=== PATIENT | female | born 1940 | race Two or more races ===

== ENCOUNTER 2017-02-15 11:01 | Outpatient (CLI) | payer MEDICARE, MEDICAID | END 2017-02-15 23:59 | disposition home or self-care (01) | LOC: WOU 11:01 | PROVIDERS: ATTEND Podiatrist Foot & Ankle Surgery | DX: I87.313 Chronic venous hypertension (idiopathic) with ulcer of bilateral lower extremity (principal); L97.321 Non-pressure chronic ulcer of left ankle limited to breakdown of skin; L97.311 Non-pressure chronic ulcer of right ankle limited to breakdown of skin; L97.821 Non-pressure chronic ulcer of other part of left lower leg limited to breakdown of skin; L97.811 Non-pressure chronic ulcer of other part of right lower leg limited to breakdown of skin; M79.662 Pain in left lower leg; M79.661 Pain in right lower leg; Z87.891 Personal history of nicotine dependence | CPT/HCPCS: 11042; 11045; A6402; J7040 ==

== ENCOUNTER 2017-02-22 11:50 | Outpatient (CLI) | payer MEDICARE, MEDICAID | END 2017-02-22 23:59 | disposition home or self-care (01) | LOC: WOU 11:50 | PROVIDERS: ATTEND Podiatrist Foot & Ankle Surgery | DX: I87.2 Venous insufficiency (chronic) (peripheral) (principal); L97.909 Non-pressure chronic ulcer of unspecified part of unspecified lower leg with unspecified severity | CPT/HCPCS: 93970-TC ==

== ENCOUNTER 2017-02-25 12:40 | Outpatient (CLI) | payer MEDICARE, MEDICAID | END 2017-02-25 23:59 | disposition home or self-care (01) | LOC: WOU 12:40 | PROVIDERS: ATTEND Podiatrist Foot & Ankle Surgery | DX: I87.311 Chronic venous hypertension (idiopathic) with ulcer of right lower extremity (principal); L97.311 Non-pressure chronic ulcer of right ankle limited to breakdown of skin; L97.811 Non-pressure chronic ulcer of other part of right lower leg limited to breakdown of skin; M79.661 Pain in right lower leg; M79.662 Pain in left lower leg; Z87.891 Personal history of nicotine dependence; Z83.3 Family history of diabetes mellitus | CPT/HCPCS: 11042; 11045; A6402; A6452; J7040 ==

== ENCOUNTER 2017-03-04 10:04 | Outpatient (CLI) | payer MEDICARE, MEDICAID | END 2017-03-04 23:59 | LOC: WOU 10:04 | PROVIDERS: ATTEND Podiatrist Foot & Ankle Surgery | DX: I87.313 Chronic venous hypertension (idiopathic) with ulcer of bilateral lower extremity (principal); L97.322 Non-pressure chronic ulcer of left ankle with fat layer exposed; L97.312 Non-pressure chronic ulcer of right ankle with fat layer exposed; L97.812 Non-pressure chronic ulcer of other part of right lower leg with fat layer exposed; Z87.891 Personal history of nicotine dependence | CPT/HCPCS: 11042; 11045; A6402 ×2; A6452; J7040 ==

== ENCOUNTER 2017-03-22 09:51 | Outpatient (CLI) | payer MEDICARE, MEDICAID | END 2017-03-22 23:59 | disposition home or self-care (01) | LOC: WOU 09:51 | PROVIDERS: ATTEND Podiatrist Foot & Ankle Surgery | DX: I87.313 Chronic venous hypertension (idiopathic) with ulcer of bilateral lower extremity (principal); L97.322 Non-pressure chronic ulcer of left ankle with fat layer exposed; L97.312 Non-pressure chronic ulcer of right ankle with fat layer exposed; L97.822 Non-pressure chronic ulcer of other part of left lower leg with fat layer exposed; L97.812 Non-pressure chronic ulcer of other part of right lower leg with fat layer exposed; Z87.891 Personal history of nicotine dependence; Z83.3 Family history of diabetes mellitus; I87.393 Chronic venous hypertension (idiopathic) with other complications of bilateral lower extremity | CPT/HCPCS: 11042; A6402; A6452 ==

== ENCOUNTER 2017-03-29 09:46 | Outpatient (CLI) | payer MEDICARE, MEDICAID | END 2017-03-29 23:59 | disposition home or self-care (01) | LOC: WOU 09:46 | PROVIDERS: ATTEND Podiatrist Foot & Ankle Surgery | DX: I87.313 Chronic venous hypertension (idiopathic) with ulcer of bilateral lower extremity (principal); L97.322 Non-pressure chronic ulcer of left ankle with fat layer exposed; L97.312 Non-pressure chronic ulcer of right ankle with fat layer exposed; L97.822 Non-pressure chronic ulcer of other part of left lower leg with fat layer exposed; L97.812 Non-pressure chronic ulcer of other part of right lower leg with fat layer exposed; M79.662 Pain in left lower leg; M79.661 Pain in right lower leg; Z87.891 Personal history of nicotine dependence | CPT/HCPCS: 11042; 11045; A6402; A6452 ==

== ENCOUNTER 2017-04-05 09:16 | Outpatient (CLI) | payer MEDICARE, MEDICAID | END 2017-04-05 23:59 | disposition home health service (06) | LOC: WOU 09:16 | PROVIDERS: ATTEND Podiatrist Foot & Ankle Surgery | DX: I87.313 Chronic venous hypertension (idiopathic) with ulcer of bilateral lower extremity (principal); L97.322 Non-pressure chronic ulcer of left ankle with fat layer exposed; L97.312 Non-pressure chronic ulcer of right ankle with fat layer exposed; L97.812 Non-pressure chronic ulcer of other part of right lower leg with fat layer exposed; M79.662 Pain in left lower leg; M79.661 Pain in right lower leg; I87.2 Venous insufficiency (chronic) (peripheral); Z87.891 Personal history of nicotine dependence | CPT/HCPCS: 11042; 11045; A6402; A6452 ==

== ENCOUNTER 2017-04-15 09:20 | Outpatient (CLI) | payer MEDICARE, MEDICAID | END 2017-04-15 23:59 | disposition home health service (06) | LOC: WOU 09:20 | PROVIDERS: ATTEND Podiatrist Foot & Ankle Surgery | DX: I87.313 Chronic venous hypertension (idiopathic) with ulcer of bilateral lower extremity (principal); L97.322 Non-pressure chronic ulcer of left ankle with fat layer exposed; L97.312 Non-pressure chronic ulcer of right ankle with fat layer exposed; L97.812 Non-pressure chronic ulcer of other part of right lower leg with fat layer exposed; M79.662 Pain in left lower leg; M79.661 Pain in right lower leg; Z87.891 Personal history of nicotine dependence | CPT/HCPCS: 11042; 11045; A6253; A6402; A6452 ==

== ENCOUNTER 2017-04-22 09:20 | Outpatient (CLI) | payer MEDICARE, MEDICAID | END 2017-04-22 23:59 | disposition home health service (06) | LOC: WOU 09:20 | PROVIDERS: ATTEND Podiatrist Foot & Ankle Surgery | DX: I87.313 Chronic venous hypertension (idiopathic) with ulcer of bilateral lower extremity (principal); L97.322 Non-pressure chronic ulcer of left ankle with fat layer exposed; L97.312 Non-pressure chronic ulcer of right ankle with fat layer exposed; L97.812 Non-pressure chronic ulcer of other part of right lower leg with fat layer exposed; Z87.891 Personal history of nicotine dependence; Z83.3 Family history of diabetes mellitus; M79.662 Pain in left lower leg; M79.661 Pain in right lower leg; I87.2 Venous insufficiency (chronic) (peripheral) | CPT/HCPCS: 11042; 11045; A6253; A6402; A6452 ×2 ==

== ENCOUNTER 2017-05-10 09:25 | Outpatient (CLI) | payer MEDICARE, MEDICAID | END 2017-05-10 23:59 | disposition home or self-care (01) | LOC: WOU 09:25 | PROVIDERS: ATTEND Podiatrist Foot & Ankle Surgery | DX: I87.313 Chronic venous hypertension (idiopathic) with ulcer of bilateral lower extremity (principal); L97.322 Non-pressure chronic ulcer of left ankle with fat layer exposed; L97.312 Non-pressure chronic ulcer of right ankle with fat layer exposed; L97.812 Non-pressure chronic ulcer of other part of right lower leg with fat layer exposed; M79.662 Pain in left lower leg; M79.661 Pain in right lower leg; Z87.891 Personal history of nicotine dependence | CPT/HCPCS: 11042; 11045; A6253; A6402; A6452; J3490 ==

== ENCOUNTER 2017-05-17 09:39 | Outpatient (CLI) | payer MEDICARE, MEDICAID | END 2017-05-17 23:59 | disposition home or self-care (01) | LOC: WOU 09:39 | PROVIDERS: ATTEND Podiatrist Foot & Ankle Surgery | DX: I87.313 Chronic venous hypertension (idiopathic) with ulcer of bilateral lower extremity (principal); L97.322 Non-pressure chronic ulcer of left ankle with fat layer exposed; L97.312 Non-pressure chronic ulcer of right ankle with fat layer exposed; L97.812 Non-pressure chronic ulcer of other part of right lower leg with fat layer exposed; M79.662 Pain in left lower leg; M79.661 Pain in right lower leg; Z87.891 Personal history of nicotine dependence | CPT/HCPCS: 15271; A6402 ×2; A6452; Q4131 ==

== ENCOUNTER 2017-05-24 09:36 | Outpatient (CLI) | payer MEDICARE, MEDICAID | END 2017-05-24 23:59 | disposition home or self-care (01) | LOC: WOU 09:36 | PROVIDERS: ATTEND Podiatrist Foot & Ankle Surgery | DX: I87.313 Chronic venous hypertension (idiopathic) with ulcer of bilateral lower extremity (principal); L97.329 Non-pressure chronic ulcer of left ankle with unspecified severity; L97.312 Non-pressure chronic ulcer of right ankle with fat layer exposed; L97.812 Non-pressure chronic ulcer of other part of right lower leg with fat layer exposed; M79.662 Pain in left lower leg; M79.661 Pain in right lower leg; Z87.891 Personal history of nicotine dependence | CPT/HCPCS: 15271; A6402 ×2; A6452; Q4131 ==

== ENCOUNTER 2017-05-31 09:26 | Outpatient (CLI) | payer MEDICARE, MEDICAID | END 2017-05-31 23:59 | disposition home or self-care (01) | LOC: WOU 09:26 | PROVIDERS: ATTEND Podiatrist Foot & Ankle Surgery | DX: I87.313 Chronic venous hypertension (idiopathic) with ulcer of bilateral lower extremity (principal); L97.322 Non-pressure chronic ulcer of left ankle with fat layer exposed; L97.312 Non-pressure chronic ulcer of right ankle with fat layer exposed; L97.812 Non-pressure chronic ulcer of other part of right lower leg with fat layer exposed; M79.662 Pain in left lower leg; M79.661 Pain in right lower leg; Z87.891 Personal history of nicotine dependence | CPT/HCPCS: 15271; A6402; A6452 ==

== ENCOUNTER 2017-06-07 09:17 | Outpatient (CLI) | payer MEDICARE, MEDICAID | END 2017-06-07 23:59 | disposition home or self-care (01) | LOC: WOU 09:17 | PROVIDERS: ATTEND Podiatrist Foot & Ankle Surgery | DX: I87.313 Chronic venous hypertension (idiopathic) with ulcer of bilateral lower extremity (principal); L97.322 Non-pressure chronic ulcer of left ankle with fat layer exposed; L97.812 Non-pressure chronic ulcer of other part of right lower leg with fat layer exposed; L97.312 Non-pressure chronic ulcer of right ankle with fat layer exposed; M79.662 Pain in left lower leg; M79.661 Pain in right lower leg; Z83.3 Family history of diabetes mellitus; Z87.891 Personal history of nicotine dependence | CPT/HCPCS: 15271; A6402 ×2; A6452; Q4131 ==

== ENCOUNTER 2017-06-14 09:30 | Outpatient (CLI) | payer MEDICARE, MEDICAID | END 2017-06-14 23:59 | disposition home or self-care (01) | LOC: WOU 09:30 | PROVIDERS: ATTEND Podiatrist Foot & Ankle Surgery | DX: I87.313 Chronic venous hypertension (idiopathic) with ulcer of bilateral lower extremity (principal); L97.322 Non-pressure chronic ulcer of left ankle with fat layer exposed; L97.812 Non-pressure chronic ulcer of other part of right lower leg with fat layer exposed; M79.662 Pain in left lower leg; M79.661 Pain in right lower leg; Z87.891 Personal history of nicotine dependence | CPT/HCPCS: A6402; A6452; G0463 ==

== ENCOUNTER 2017-06-24 07:48 | Inpatient (IN) | payer MEDICARE, MEDICAID ==
[~2017-06-24] VITALS: Ht 160 cm; Wt 81.6 kg
[2017-06-24 08:08] VITALS: BP 126/67
--- NOTE | 2017-06-24 08:08 | NUR ---
MS RN NOTES RECEIVED PATIENT DAY SURGERY DX BILATERAL LOWER EXTREMITY VENOUS ULCER FOR DEBRIDEMENT CA/O DR. BURNS. PT AAO X 4, ACCOMPANIED BY . ON ROOM AIR, NOT IN ANY DISTRESS, DENIES PAIN, NPO SINCE MIDGNIGHT. CHANGE INTO HOSPITAL GOWN. CONSENT PREPARED AND SIGNED. IV STARTED ON RT FA G20. GOOD BLOOD RETURN. SR UP X 2, CALL LIGHT WITHIN REACH. WILL CONT TO MONITOR.
[2017-06-24 09:22] LABS: BASOPHILS % (AUTO) 0.2 % (0.0-2.0); EOSINOPHILS # (AUTO) 0.1 /CMM (0.0-0.7); EOSINOPHILS % (AUTO) 2.7 % (0.0-6.0); HEMATOCRIT 35 % (33-45); HEMOGLOBIN 11.8 g/dL (11.5-14.8); LYMPHOCYTES # (AUTO) 0.5 /CMM (0.8-4.8); LYMPHOCYTES % (AUTO) 14.2 % (20.0-44.0); MEAN CORPUSCULAR HEMOGLOBIN 32 PG (26.0-33.0); MEAN CORPUSCULAR HGB CONC 34 g/dl (31.0-36.0); MEAN CORPUSCULAR VOLUME 94 fL (82-100); MONOCYTES # (AUTO) 0.2 /CMM (0.1-1.30); MONOCYTES % (AUTO) 6.4 % (2.0-12.0); NEUTROPHILS # (AUTO) 2.8 /CMM (1.8-8.9); NEUTROPHILS % (AUTO) 76.5 % (43.0-81.0); PLATELET COUNT (AUTO) 178 /CMM (150-450); RDW COEFFICIENT OF VARIATION 14.2 (11.5-15.0); RED BLOOD CELL COUNT(AUTO) 3.68 MIL/uL (4.0-5.2); WHITE BLOOD COUNT (AUTO) 3.7 K/uL (4.3-11.0)
[2017-06-24 09:24] LABS: CALCIUM, SERUM 9.3 mg/dL (8.5-10.1); CARBON DIOXIDE 28 mmol/L (21-32); CHLORIDE 106 mmol/L (98-107); CREATININE 0.7 mg/dL (0.6-1.3); GLUCOSE 87 mg/dL (74-106); SODIUM SERUM 142 mmol/L (136-145); UREA NITROGEN, BLOOD 20 mg/dL (7-18)
[2017-06-24] MEDS ORDERED: CEFAZOLIN 2 GM in IV NS 0.9% 50 ML IV ONE (09:30)
[2017-06-24 09:36] LABS: INR 0.96 (0.87-1.13)
--- NOTE | 2017-06-24 09:40 | NUR ---
MS RN NOTES PATIENT PICKED UP FOR SCHEDULED PROCEDURE.
--- NOTE | 2017-06-24 09:47 | NUR ---
MS RN NOTES ANCEF SCANNED. TO BE GIVEN IN SURGERY C/O NICOLAS JACOME
[2017-06-24] MEDS ORDERED: FENTANYL PF 100MCG/2ML AMPUL ONE (10:19)
[2017-06-24] MEDS ORDERED: BUPIVACAINE 0.5 % PF 150 MG/30 ML VIAL ONE (10:49)
[2017-06-24 12:08] VITALS: BP 108/50
--- NOTE | 2017-06-24 12:08 | NUR ---
MS JACOME NOTES PATIENT BACK FORM SURGERY. Addendum: 06/24/17 at 1229 by WALE SHANNON RN ADDENDUM: VITAL SIGNS STABLE
--- NOTE | 2017-06-24 14:15 | NUR ---
MS RN NOTES PATIENT S/P BILATERAL LOWER EXT VENOUS WOUND DEBRIDEMENT BY DR. BURNS. CDI BANDAGE TO BOTH LOWER LEGS. DISCHARGED TO HOME IN STABLE CONDITION, TO FOLLOW UP WITH SURGEON IN 2-4 DAYS AND WILL MAKE OWN APPOINTMENT. IV ACCESS ON RT FA REMOVED NO BLEEDING DRESSING IN PLACE. UNABLE TO TAKE PHOTOS OF BLE DUE TO SURGICAL BANDAGE AND TOMAS WRAP IN PLACE. ALL BELONGINGS CHECKED AND RETURNED, ALL PAPER WORLS SIGNED. PROVIDED DC INSTRUCTIONS, MED PRESCRIPTION AND HEALTH TEACHINGS. ALL PAPER WORKS SIGNED. ACCOMPANIED BY HANDY MANAGING ATTORNEY AND TO LOBBY VIA WHEELCHAIR AND WILL GO HOME VIA PRIVATE CAR.
== END 2017-06-24 14:19 | disposition home or self-care (01) | DRG 264 ==
LOC: DS 07:48 → MEDSG1 07:55
PROVIDERS: ADMIT Podiatrist Foot & Ankle Surgery; ATTEND Podiatrist Foot & Ankle Surgery
PROC: 0JBN0ZZ Excision of Right Lower Leg Subcutaneous Tissue and Fascia, Open Approach (ICD-10-PCS; 2017-06-24)
PROC: 0JBP0ZZ Excision of Left Lower Leg Subcutaneous Tissue and Fascia, Open Approach (ICD-10-PCS; principal; 2017-06-24 10:00)
DX: I87.2 Venous insufficiency (chronic) (peripheral) (principal)
CPT/HCPCS: 36415; 71045-TC; 80048-TC; 85025-TC; 85610-TC; A4216; A6402; J0690; J2704; J3010; J3490; Z7610

== ENCOUNTER 2017-06-28 09:24 | Outpatient (CLI) | payer MEDICARE, MEDICAID | END 2017-06-28 23:59 | disposition home health service (06) | LOC: WOU 09:24 | PROVIDERS: ATTEND Podiatrist Foot & Ankle Surgery | DX: I87.313 Chronic venous hypertension (idiopathic) with ulcer of bilateral lower extremity (principal); L97.322 Non-pressure chronic ulcer of left ankle with fat layer exposed; L97.312 Non-pressure chronic ulcer of right ankle with fat layer exposed; L97.822 Non-pressure chronic ulcer of other part of left lower leg with fat layer exposed; L97.812 Non-pressure chronic ulcer of other part of right lower leg with fat layer exposed; M79.662 Pain in left lower leg; M79.661 Pain in right lower leg; Z87.891 Personal history of nicotine dependence | CPT/HCPCS: 29580; A6402 ==

== ENCOUNTER 2017-07-05 09:30 | Outpatient (CLI) | payer MEDICARE, MEDICAID | END 2017-07-05 23:59 | disposition home health service (06) | LOC: WOU 09:30 | PROVIDERS: ATTEND Podiatrist Foot & Ankle Surgery | DX: I87.313 Chronic venous hypertension (idiopathic) with ulcer of bilateral lower extremity (principal); L97.322 Non-pressure chronic ulcer of left ankle with fat layer exposed; L97.312 Non-pressure chronic ulcer of right ankle with fat layer exposed; L97.822 Non-pressure chronic ulcer of other part of left lower leg with fat layer exposed; L97.812 Non-pressure chronic ulcer of other part of right lower leg with fat layer exposed; Z87.891 Personal history of nicotine dependence; Z83.3 Family history of diabetes mellitus | CPT/HCPCS: 29580; A6402 ×2; G0463 ==

== ENCOUNTER 2017-07-12 09:45 | Outpatient (CLI) | payer MEDICARE, MEDICAID | END 2017-07-12 23:59 | disposition home health service (06) | LOC: WOU 09:45 | PROVIDERS: ATTEND Podiatrist Foot & Ankle Surgery | DX: I87.313 Chronic venous hypertension (idiopathic) with ulcer of bilateral lower extremity (principal); L97.322 Non-pressure chronic ulcer of left ankle with fat layer exposed; L97.312 Non-pressure chronic ulcer of right ankle with fat layer exposed; L97.812 Non-pressure chronic ulcer of other part of right lower leg with fat layer exposed; Z87.891 Personal history of nicotine dependence; Z83.3 Family history of diabetes mellitus | CPT/HCPCS: 11042; 15271; A6402 ×2; A6452; Q4131 ==

== ENCOUNTER 2017-07-19 09:50 | Outpatient (CLI) | payer MEDICARE, MEDICAID | END 2017-07-19 23:59 | disposition home health service (06) | LOC: WOU 09:50 | PROVIDERS: ATTEND Podiatrist Foot & Ankle Surgery | DX: I87.313 Chronic venous hypertension (idiopathic) with ulcer of bilateral lower extremity (principal); L97.322 Non-pressure chronic ulcer of left ankle with fat layer exposed; L97.312 Non-pressure chronic ulcer of right ankle with fat layer exposed; L97.522 Non-pressure chronic ulcer of other part of left foot with fat layer exposed; L97.512 Non-pressure chronic ulcer of other part of right foot with fat layer exposed; M79.662 Pain in left lower leg; M79.661 Pain in right lower leg; Z87.891 Personal history of nicotine dependence | CPT/HCPCS: 11042; 15271; A6402; A6452; Q4131 ==

== ENCOUNTER 2017-07-26 09:49 | Outpatient (CLI) | payer MEDICARE, MEDICAID | END 2017-07-26 23:59 | disposition home health service (06) | LOC: WOU 09:49 | PROVIDERS: ATTEND Podiatrist Foot & Ankle Surgery | DX: I87.311 Chronic venous hypertension (idiopathic) with ulcer of right lower extremity (principal); L97.312 Non-pressure chronic ulcer of right ankle with fat layer exposed; L97.812 Non-pressure chronic ulcer of other part of right lower leg with fat layer exposed; M79.662 Pain in left lower leg; Z87.891 Personal history of nicotine dependence | CPT/HCPCS: 11042; 15271; A6402; A6452 ==

== ENCOUNTER 2017-08-05 09:49 | Outpatient (CLI) | payer MEDICARE, MEDICAID | END 2017-08-05 23:59 | disposition home health service (06) | LOC: WOU 09:49 | PROVIDERS: ATTEND Podiatrist Foot & Ankle Surgery | DX: I87.311 Chronic venous hypertension (idiopathic) with ulcer of right lower extremity (principal); L97.812 Non-pressure chronic ulcer of other part of right lower leg with fat layer exposed; L97.312 Non-pressure chronic ulcer of right ankle with fat layer exposed; M79.661 Pain in right lower leg; Z87.891 Personal history of nicotine dependence; Z83.3 Family history of diabetes mellitus | CPT/HCPCS: 11042; 15271; A6402 ×2; A6452; Q4131 ==

== ENCOUNTER 2017-08-12 10:05 | Outpatient (CLI) | payer MEDICARE, MEDICAID | END 2017-08-12 23:59 | disposition home health service (06) | LOC: WOU 10:05 | PROVIDERS: ATTEND Podiatrist Foot & Ankle Surgery | DX: I87.311 Chronic venous hypertension (idiopathic) with ulcer of right lower extremity (principal); L97.812 Non-pressure chronic ulcer of other part of right lower leg with fat layer exposed; L97.312 Non-pressure chronic ulcer of right ankle with fat layer exposed; M79.661 Pain in right lower leg; Z87.891 Personal history of nicotine dependence | CPT/HCPCS: 11042; 15271; A6253; A6402; A6452 ==

== ENCOUNTER 2017-08-19 09:56 | Outpatient (CLI) | payer MEDICARE, MEDICAID | END 2017-08-19 23:59 | disposition home or self-care (01) | LOC: WOU 09:56 | PROVIDERS: ATTEND Podiatrist Foot & Ankle Surgery | DX: I87.311 Chronic venous hypertension (idiopathic) with ulcer of right lower extremity (principal); L97.812 Non-pressure chronic ulcer of other part of right lower leg with fat layer exposed; L97.312 Non-pressure chronic ulcer of right ankle with fat layer exposed; M79.661 Pain in right lower leg | CPT/HCPCS: 11042; 15275; A6253; A6402; A6452 ==

== ENCOUNTER 2017-08-26 09:54 | Outpatient (CLI) | payer MEDICARE, MEDICAID | END 2017-08-26 23:59 | disposition home or self-care (01) | LOC: WOU 09:54 | PROVIDERS: ATTEND Podiatrist Foot & Ankle Surgery | DX: I87.311 Chronic venous hypertension (idiopathic) with ulcer of right lower extremity (principal); L97.812 Non-pressure chronic ulcer of other part of right lower leg with fat layer exposed; L97.312 Non-pressure chronic ulcer of right ankle with fat layer exposed; L97.329 Non-pressure chronic ulcer of left ankle with unspecified severity; M79.661 Pain in right lower leg; M79.662 Pain in left lower leg | CPT/HCPCS: 11100; A6402 ×2; A6452; J3490; 88305-TC; 88312-TC ==

== ENCOUNTER 2017-09-02 10:09 | Outpatient (CLI) | payer MEDICARE, MEDICAID | END 2017-09-02 23:59 | disposition home health service (06) | LOC: WOU 10:09 | PROVIDERS: ATTEND Podiatrist Foot & Ankle Surgery | DX: I87.313 Chronic venous hypertension (idiopathic) with ulcer of bilateral lower extremity (principal); L97.328 Non-pressure chronic ulcer of left ankle with other specified severity; L97.311 Non-pressure chronic ulcer of right ankle limited to breakdown of skin; L97.811 Non-pressure chronic ulcer of other part of right lower leg limited to breakdown of skin; Z87.891 Personal history of nicotine dependence; I87.2 Venous insufficiency (chronic) (peripheral); M79.605 Pain in left leg; M79.604 Pain in right leg | CPT/HCPCS: 11042; 11045; A6402; A6452; J3490 ==

== ENCOUNTER 2017-09-16 09:58 | Outpatient (CLI) | payer MEDICARE, MEDICAID | END 2017-09-16 23:59 | disposition home health service (06) | LOC: WOU 09:58 | PROVIDERS: ATTEND Podiatrist Foot & Ankle Surgery | DX: I87.313 Chronic venous hypertension (idiopathic) with ulcer of bilateral lower extremity (principal); L97.322 Non-pressure chronic ulcer of left ankle with fat layer exposed; L97.312 Non-pressure chronic ulcer of right ankle with fat layer exposed; L97.812 Non-pressure chronic ulcer of other part of right lower leg with fat layer exposed; Z87.891 Personal history of nicotine dependence; Z90.49 Acquired absence of other specified parts of digestive tract; M79.662 Pain in left lower leg; M79.661 Pain in right lower leg | CPT/HCPCS: 11042; 11045; A6402 ×2; A6452 ==

== ENCOUNTER 2017-09-27 09:37 | Outpatient (CLI) | payer MEDICARE, MEDICAID | END 2017-09-27 23:59 | disposition home or self-care (01) | LOC: WOU 09:37 | PROVIDERS: ATTEND Podiatrist Foot & Ankle Surgery | DX: I87.313 Chronic venous hypertension (idiopathic) with ulcer of bilateral lower extremity (principal); L97.322 Non-pressure chronic ulcer of left ankle with fat layer exposed; L97.312 Non-pressure chronic ulcer of right ankle with fat layer exposed; L97.812 Non-pressure chronic ulcer of other part of right lower leg with fat layer exposed; Z87.891 Personal history of nicotine dependence; M79.662 Pain in left lower leg; M79.661 Pain in right lower leg | CPT/HCPCS: 11042; 11045; A6402; A6452 ==

== ENCOUNTER 2017-10-04 09:38 | Outpatient (CLI) | payer MEDICARE, MEDICAID | END 2017-10-04 23:59 | disposition home or self-care (01) | LOC: WOU 09:38 | PROVIDERS: ATTEND Podiatrist Foot & Ankle Surgery | DX: I87.313 Chronic venous hypertension (idiopathic) with ulcer of bilateral lower extremity (principal); L97.322 Non-pressure chronic ulcer of left ankle with fat layer exposed; L97.312 Non-pressure chronic ulcer of right ankle with fat layer exposed; L97.812 Non-pressure chronic ulcer of other part of right lower leg with fat layer exposed; Z87.891 Personal history of nicotine dependence; Z83.3 Family history of diabetes mellitus; M79.662 Pain in left lower leg; M79.661 Pain in right lower leg | CPT/HCPCS: 11042; 11045; A6253; A6402; A6452; Z7610 ==

== ENCOUNTER 2017-10-18 09:42 | Outpatient (CLI) | payer MEDICARE, MEDICAID | END 2017-10-18 23:59 | disposition home or self-care (01) | LOC: WOU 09:42 | PROVIDERS: ATTEND Podiatrist Foot & Ankle Surgery | DX: I87.311 Chronic venous hypertension (idiopathic) with ulcer of right lower extremity (principal); L97.812 Non-pressure chronic ulcer of other part of right lower leg with fat layer exposed; L97.312 Non-pressure chronic ulcer of right ankle with fat layer exposed; M79.661 Pain in right lower leg; Z87.891 Personal history of nicotine dependence | CPT/HCPCS: 11042; 11045; A6402; A6452; Z7610 ==

== ENCOUNTER 2017-11-01 10:14 | Outpatient (CLI) | payer MEDICARE, MEDICAID | END 2017-11-01 23:59 | disposition home health service (06) | LOC: WOU 10:14 | PROVIDERS: ATTEND Podiatrist Foot & Ankle Surgery | DX: I87.311 Chronic venous hypertension (idiopathic) with ulcer of right lower extremity (principal); L97.812 Non-pressure chronic ulcer of other part of right lower leg with fat layer exposed; L97.312 Non-pressure chronic ulcer of right ankle with fat layer exposed; M79.661 Pain in right lower leg; I87.2 Venous insufficiency (chronic) (peripheral); Z87.891 Personal history of nicotine dependence | CPT/HCPCS: A6253; A6402; A6452; G0463; Z7610 ==

== ENCOUNTER 2017-11-15 09:55 | Outpatient (CLI) | payer MEDICARE, MEDICAID | END 2017-11-15 23:59 | disposition home health service (06) | LOC: WOU 09:55 | PROVIDERS: ATTEND Podiatrist Foot & Ankle Surgery | DX: I87.311 Chronic venous hypertension (idiopathic) with ulcer of right lower extremity (principal); L97.812 Non-pressure chronic ulcer of other part of right lower leg with fat layer exposed; L97.312 Non-pressure chronic ulcer of right ankle with fat layer exposed; D69.6 Thrombocytopenia, unspecified; M79.661 Pain in right lower leg | CPT/HCPCS: 11042; 11045; A6402; A6452; Z7610 ==

== ENCOUNTER 2017-12-06 09:53 | Outpatient (CLI) | payer MEDICARE, MEDICAID | END 2017-12-06 23:59 | disposition home or self-care (01) | LOC: WOU 09:53 | PROVIDERS: ATTEND Podiatrist Foot & Ankle Surgery | DX: I87.311 Chronic venous hypertension (idiopathic) with ulcer of right lower extremity (principal); L97.812 Non-pressure chronic ulcer of other part of right lower leg with fat layer exposed; L97.312 Non-pressure chronic ulcer of right ankle with fat layer exposed; M79.662 Pain in left lower leg; M79.661 Pain in right lower leg; Z87.891 Personal history of nicotine dependence | CPT/HCPCS: 11042; A6402 ×2; A6452 ×2; Z7610 ==

== ENCOUNTER 2018-11-14 09:20 | Outpatient (CLI) | payer MEDICARE, MEDICAID | END 2018-11-14 23:59 | disposition home or self-care (01) | LOC: WOU 09:20 | PROVIDERS: ATTEND Podiatrist Foot & Ankle Surgery | DX: I87.313 Chronic venous hypertension (idiopathic) with ulcer of bilateral lower extremity (principal); L97.312 Non-pressure chronic ulcer of right ankle with fat layer exposed; L97.812 Non-pressure chronic ulcer of other part of right lower leg with fat layer exposed; R60.0 Localized edema; R26.2 Difficulty in walking, not elsewhere classified | CPT/HCPCS: G0463 ==

== ENCOUNTER 2018-11-24 11:00 | Outpatient (CLI) | payer MEDICARE, MEDICAID | END 2018-11-24 23:59 | disposition home or self-care (01) | LOC: WOU 11:00 | PROVIDERS: ATTEND Podiatrist Foot & Ankle Surgery | DX: I87.311 Chronic venous hypertension (idiopathic) with ulcer of right lower extremity (principal); L97.312 Non-pressure chronic ulcer of right ankle with fat layer exposed; L97.812 Non-pressure chronic ulcer of other part of right lower leg with fat layer exposed; R26.2 Difficulty in walking, not elsewhere classified; I87.2 Venous insufficiency (chronic) (peripheral); Z83.3 Family history of diabetes mellitus | CPT/HCPCS: G0463 ==

== ENCOUNTER 2018-12-22 09:20 | Outpatient (CLI) | payer MEDICARE, MEDICAID | END 2018-12-22 23:59 | disposition home or self-care (01) | LOC: WOU 09:20 | PROVIDERS: ATTEND Podiatrist Foot & Ankle Surgery | DX: I87.313 Chronic venous hypertension (idiopathic) with ulcer of bilateral lower extremity (principal); L97.322 Non-pressure chronic ulcer of left ankle with fat layer exposed; L97.312 Non-pressure chronic ulcer of right ankle with fat layer exposed; L97.822 Non-pressure chronic ulcer of other part of left lower leg with fat layer exposed; L97.812 Non-pressure chronic ulcer of other part of right lower leg with fat layer exposed; Z87.891 Personal history of nicotine dependence; Z83.3 Family history of diabetes mellitus; M32.9 Systemic lupus erythematosus, unspecified; R26.2 Difficulty in walking, not elsewhere classified | CPT/HCPCS: G0463 ==

== ENCOUNTER 2019-01-19 09:00 | Outpatient (CLI) | payer MEDICARE, MEDICAID | END 2019-01-19 23:59 | disposition home or self-care (01) | LOC: WOU 09:00 | PROVIDERS: ATTEND Podiatrist Foot & Ankle Surgery | DX: I87.313 Chronic venous hypertension (idiopathic) with ulcer of bilateral lower extremity (principal); L97.312 Non-pressure chronic ulcer of right ankle with fat layer exposed; L97.822 Non-pressure chronic ulcer of other part of left lower leg with fat layer exposed; M32.9 Systemic lupus erythematosus, unspecified; R26.2 Difficulty in walking, not elsewhere classified; I87.2 Venous insufficiency (chronic) (peripheral) | CPT/HCPCS: 11042 ==

== ENCOUNTER 2019-04-20 09:15 | Outpatient (CLI) | payer MEDICARE, MEDICAID | END 2019-04-20 23:59 | disposition home or self-care (01) | LOC: WOU 09:15 | PROVIDERS: ATTEND Podiatrist Foot & Ankle Surgery | DX: I87.313 Chronic venous hypertension (idiopathic) with ulcer of bilateral lower extremity (principal); L97.822 Non-pressure chronic ulcer of other part of left lower leg with fat layer exposed; L97.812 Non-pressure chronic ulcer of other part of right lower leg with fat layer exposed; R26.2 Difficulty in walking, not elsewhere classified; M32.9 Systemic lupus erythematosus, unspecified; I87.2 Venous insufficiency (chronic) (peripheral); Z87.891 Personal history of nicotine dependence; Z83.3 Family history of diabetes mellitus | CPT/HCPCS: 11042 ==